=== PATIENT | male | born 1995 | race Caucasian/White ===

== ENCOUNTER 2024-10-30 15:25 | Inpatient (IN) | payer OTHER ==
[~2024-10-30] VITALS: Ht 193 cm; Wt 79.4 kg
[2024-10-30] MEDS: SODIUM CHLORIDE 0.9% 1,000 ML IV ONE ×2 (16:11→16:51)
[2024-10-30] MEDS: ONDANSETRON HCL 4MG/2ML INJ IV ONE (16:12)
[2024-10-30 16:35] LABS: BG DEOXYHEMOGLOBIN 1.8 % (0.0-5.0)
[2024-10-30 16:50] LABS: BASOPHILS % 1.2 % (0.0-2.0); EOSINOPHILS % 1.2 % (0.0-5.0); HEMATOCRIT. 48.8 % (42.0-52.0); HEMOGLOBIN. 15.7 g/dL (14.0-18.0); LYMPHOCYTES % 26.1 % (20.0-50.0); MEAN PLATELET VOLUME 8.8 fl (7.4-10.4); MONOCYTES % 5.1 % (2.0-8.0); NEUTROPHILS % 66.4 % (40.0-76.0); PLATELET 310 x1000/uL (130-400); RED BLOOD CELL COUNT 5.20 mill/uL (4.7-6.1); RED CELL DISTRIBUTION WIDTH 14.7 % (11.6-14.6)
[2024-10-30 16:58] LABS: CREATININE 1.6 mg/dL (0.6-1.3)
[2024-10-30 16:59] LABS: ETHANOL BLOOD < 10 mg/dL (<10); TROPONIN I HIGH SENSITIVITY < 4 ng/L (3.0-53); UREA NITROGEN BLOOD 8 mg/dL (9-23)
[2024-10-30 17:00] LABS: ASPARTATE AMINOTRANSFERASE 10 IU/L (<34); BILIRUBIN DIRECT 0.1 mg/dL (<=3.0)
[2024-10-30 17:01] LABS: BILIRUBIN TOTAL 0.4 mg/dL (0.1-1.0); PROTEIN TOTAL 8.0 g/dL (6.0-8.3)
[2024-10-30] MEDS ORDERED: INSULIN REGULAR (DRIP) 100 UNITS in SODIUM CHLORIDE 0.9% 99 ML IV SCH (17:15)
[2024-10-30] MEDS ORDERED: BLOOD SUGAR DIAGNOSTIC STRIP TEST PRN (17:15)
[2024-10-30] MEDS ORDERED: POTASSIUM CHLORIDE 40 MEQ in SODIUM CHLORIDE 0.9% 230 ML IV PRN (17:15)
[2024-10-30] MEDS ORDERED: DEXTROSE 50% WATER 50ML SYRINGE IV PRN (17:15)
[2024-10-30] MEDS: BLOOD SUGAR DIAGNOSTIC STRIP TEST SCH (17:31)
[2024-10-30] MEDS: INSULIN REGULAR 100U/100ML PMX 100 ML IV SCH (17:31)
[2024-10-30] MEDS: SODIUM CHLORIDE 0.9% 1,000 ML IV SCH (17:31)
[2024-10-30 18:27] LABS: TROPONIN I HIGH SENSITIVITY < 4 ng/L (3.0-53)
[2024-10-30] MEDS: IPRATROPIUM/ALBUTEROL 0.5-3(2.5)MG/3ML NEB NEB PRN (19:44)
[2024-10-30 19:47] VITALS: PULSE 114; RESP 21; O2SAT 100
[2024-10-30 22:37] LABS: CLARITY URINE CLEAR (CLEAR); COLOR URINE YELLOW (YELLOW); GLUCOSE URINE 3+ (NEGATIVE); KETONES URINE 4+ (NEGATIVE); LEUKOCYTE ESTERASE URINE TRACE (NEGATIVE); NITRITE URINE NEGATIVE (NEGATIVE); OCCULT BLOOD URINE TRACE (NEGATIVE); PH URINE 5.0 (4.5-8.0); PROTEIN URINE 2+ (NEGATIVE); SPECIFIC GRAVITY URINE 1.023 (1.005-1.030); UROBILINOGEN URINE 0.2 E.U./dL (0.2-1.0)
[2024-10-30 22:55] LABS: BACTERIA URINE 1+; SQUAMOUS EPITHELIAL CELL URINE RARE /lpf (RARE/1+); YEAST URINE FEW
[2024-10-30 22:56] LABS: *AMPHETAMINES SCREEN URINE NEGATIVE (NEGATIVE); *BARBITURATES SCREEN URINE NEGATIVE (NEGATIVE); *BENZODIAZEPINES SCREEN URINE NEGATIVE (NEGATIVE); *COCAINE SCREEN URINE NEGATIVE (NEGATIVE); CANNABINOID URINE SCREEN NEGATIVE (NEGATIVE); ECSTASY MDMA SCREEN URINE NEGATIVE (NEGATIVE); METHADONE URINE SCREEN NEGATIVE (NEGATIVE); OPIATES URINE SCREEN NEGATIVE (NEGATIVE); PHENCYCLIDINE URINE SCREEN NEGATIVE (NEGATIVE)
[2024-10-31] VITALS (99 sets, daily range): BP systolic 57–138; BP diastolic 33–104; PULSE 86–121; RESP 13–32; TEMP 36.5–38.1; O2SAT 95–100
[2024-10-31] MEDS: CEFTRIAXONE 1GM/50ML 50 ML IV ONE (00:14)
[2024-10-31 01:44] LABS: PHOSPHORUS 3.2 mg/dL (2.5-4.9)
[2024-10-31] MEDS: SODIUM CHLORIDE 0.9% 1,000 ML IV SCH (02:00)
[2024-10-31] MEDS ORDERED: BLOOD SUGAR DIAGNOSTIC STRIP TEST PRN (02:00)
[2024-10-31] MEDS ORDERED: DEXTROSE 50% WATER 50ML SYRINGE IV PRN (02:00)
[2024-10-31] MEDS ORDERED: ONDANSETRON HCL 4MG/2ML INJ IV PRN ×2 (02:00→09:00)
[2024-10-31] MEDS: DEXT 5%/0.9% NACL 1,000 ML IV SCH (02:16)
[2024-10-31] MEDS: BLOOD SUGAR DIAGNOSTIC STRIP TEST SCH (02:38)
[2024-10-31 03:36] LABS: CREATININE 1.2 mg/dL (0.6-1.3); UREA NITROGEN BLOOD 9 mg/dL (9-23)
[2024-10-31] MEDS: POTASSIUM CHLORIDE 40 MEQ in SODIUM CHLORIDE 0.9% 230 ML IV PRN (03:43)
[2024-10-31 05:39] LABS: CREATININE 1.3 mg/dL (0.6-1.3)
[2024-10-31 05:40] LABS: UREA NITROGEN BLOOD 7 mg/dL (9-23)
[2024-10-31 05:42] LABS: PHOSPHORUS 1.5 mg/dL (2.5-4.9)
[2024-10-31] MEDS: SODIUM BICARBONATE 100 MEQ in DEXTROSE 5% WATER 900 ML IV SCH (05:59)
[2024-10-31] MEDS: MAGNESIUM 2 G PREMIX 50 ML IV PRN (06:15)
[2024-10-31] MEDS: SODIUM PHOSPHATE 15 MMOL in SODIUM CHLORIDE 0.9% 245 ML IV PRN (06:39)
[2024-10-31 07:21] LABS: BASOPHILS % 0.3 % (0.0-2.0); EOSINOPHILS % 0.2 % (0.0-5.0); HEMATOCRIT. 38.9 % (42.0-52.0); HEMOGLOBIN. 13.1 g/dL (14.0-18.0); LYMPHOCYTES % 8.4 % (20.0-50.0); MEAN PLATELET VOLUME 8.6 fl (7.4-10.4); MONOCYTES % 11.7 % (2.0-8.0); NEUTROPHILS % 79.4 % (40.0-76.0); PLATELET 195 x1000/uL (130-400); RED BLOOD CELL COUNT 4.26 mill/uL (4.7-6.1); RED CELL DISTRIBUTION WIDTH 14.8 % (11.6-14.6)
[2024-10-31] MEDS: PANTOPRAZOLE SODIUM 40 MG/VIAL IV SCH (08:56)
[2024-10-31] MEDS ORDERED: CLONIDINE 0.1MG TABLET PO PRN (09:00)
[2024-10-31] MEDS ORDERED: MAGNESIUM/ALUMINUM HYDROXIDE/SIMETHICONE 30ML UDC PO PRN (09:00)
[2024-10-31] MEDS ORDERED: DOCUSATE SODIUM 100MG CAPSULE PO PRN (09:00)
[2024-10-31 09:20] LABS: BG BASE EXCESS -18.7 mmol/L (-2.0-3.0); BG CARBOXYHEMOGLOBIN 0.3 % (0.5-1.5); BG DEOXYHEMOGLOBIN 1.2 % (0.0-5.0); BG FRACTION INSPIRED OXYGEN 21; BG HCO3 ACT 6.7 mmol/L (21.0-28.0); BG METHEMOGLOBIN 0.3 % (0.5-1.5); BG OXYGEN SATURATION 98.8 % (94.0-98.0); BG OXYHEMOGLOBIN 98.2 % (94.0-98.0); BG PCO2 16.3 mmHg (35.0-48.0); BG PH 7.229 (7.350-7.450); BG PO2 141.3 mmHg (83.0-108.0); BG SAMPLE SITE RIGHT RADIAL; BG TOTAL HEMOGLOBIN 11.6 g/dL (13.5-17.5); BG VENT MODE ROOM AIR
[2024-10-31] MEDS ORDERED: POTASSIUM PHOSPHATE 30 MMOL in SODIUM CHLORIDE 0.9% 490 ML IV ONE (10:30)
[2024-10-31] MEDS: SODIUM BICARBONATE 8.4% 50MEQ/50ML SYR IV NR ×2 (11:05→17:26)
[2024-10-31] MEDS: ENOXAPARIN 40MG/0.4ML SYR SUBCUT SCH (11:17)
[2024-10-31 12:05] LABS: BASOPHILS % 0.5 % (0.0-2.0); EOSINOPHILS % 0.4 % (0.0-5.0); HEMATOCRIT. 37.0 % (42.0-52.0); HEMOGLOBIN. 12.6 g/dL (14.0-18.0); LYMPHOCYTES % 10.5 % (20.0-50.0); MEAN PLATELET VOLUME 8.4 fl (7.4-10.4); MONOCYTES % 10.8 % (2.0-8.0); NEUTROPHILS % 77.8 % (40.0-76.0); PLATELET 203 x1000/uL (130-400); RED BLOOD CELL COUNT 4.13 mill/uL (4.7-6.1); RED CELL DISTRIBUTION WIDTH 14.6 % (11.6-14.6)
[2024-10-31 13:15] LABS: PHOSPHORUS 0.8 mg/dL (2.5-4.9)
[2024-10-31] MEDS: KCL 20MEQ/100ML X 2 FOR TOTAL KCL 40MEQ/200ML IV SCH (13:23)
[2024-10-31 16:23] LABS: BG BASE EXCESS -14.8 mmol/L (-2.0-3.0); BG CARBOXYHEMOGLOBIN 0.6 % (0.5-1.5); BG DEOXYHEMOGLOBIN 1.7 % (0.0-5.0); BG FRACTION INSPIRED OXYGEN 21; BG HCO3 ACT 10.7 mmol/L (21.0-28.0); BG METHEMOGLOBIN 0.3 % (0.5-1.5); BG OXYGEN SATURATION 98.3 % (94.0-98.0); BG OXYHEMOGLOBIN 97.4 % (94.0-98.0); BG PCO2 24.9 mmHg (35.0-48.0); BG PH 7.251 (7.350-7.450); BG PO2 112.8 mmHg (83.0-108.0); BG SAMPLE SITE RIGHT BRACHIAL; BG TOTAL HEMOGLOBIN 11.5 g/dL (13.5-17.5); BG VENT MODE ROOM AIR
[2024-10-31 18:06] LABS: BASOPHILS % 0.5 % (0.0-2.0); EOSINOPHILS % 1.3 % (0.0-5.0); HEMATOCRIT. 34.2 % (42.0-52.0); HEMOGLOBIN. 11.7 g/dL (14.0-18.0); LYMPHOCYTES % 16.1 % (20.0-50.0); MEAN PLATELET VOLUME 8.4 fl (7.4-10.4); MONOCYTES % 12.2 % (2.0-8.0); NEUTROPHILS % 69.9 % (40.0-76.0); PLATELET 184 x1000/uL (130-400); RED BLOOD CELL COUNT 3.82 mill/uL (4.7-6.1); RED CELL DISTRIBUTION WIDTH 14.8 % (11.6-14.6)
[2024-10-31 18:16] LABS: PHOSPHORUS 2.0 mg/dL (2.5-4.9)
[2024-10-31 19:18] LABS: *AMPHETAMINES SCREEN URINE NEGATIVE (NEGATIVE); *BARBITURATES SCREEN URINE NEGATIVE (NEGATIVE); *BENZODIAZEPINES SCREEN URINE NEGATIVE (NEGATIVE); *COCAINE SCREEN URINE NEGATIVE (NEGATIVE); CANNABINOID URINE SCREEN NEGATIVE (NEGATIVE); METHADONE URINE SCREEN NEGATIVE (NEGATIVE); OPIATES URINE SCREEN NEGATIVE (NEGATIVE); PHENCYCLIDINE URINE SCREEN NEGATIVE (NEGATIVE)
[2024-10-31 19:19] LABS: ECSTASY MDMA SCREEN URINE NEGATIVE (NEGATIVE)
[2024-10-31] MEDS: INSULIN REGULAR 100U/100ML PMX 100 ML IV SCH (22:00)
[2024-10-31 22:07] LABS: CREATININE 1.1 mg/dL (0.6-1.3); UREA NITROGEN BLOOD 5 mg/dL (9-23)
[2024-10-31 22:09] LABS: PHOSPHORUS 2.0 mg/dL (2.5-4.9)
[2024-10-31] MEDS: POTASSIUM CHLORIDE 20MEQ/PACKET PO NR (22:47)
[2024-10-31] MEDS: POTASSIUM PHOSPHATE 30 MMOL in DEXT 5% WATER 500 ML IV NR (23:36)
[2024-11-01] VITALS (41 sets, daily range): BP systolic 95–124; BP diastolic 57–79; PULSE 78–105; RESP 14–23; TEMP 36.5–37.1; O2SAT 97–100
[2024-11-01] MEDS: INSULIN LISPRO 100 UNITS/ML SUBCUT SCH (00:34)
[2024-11-01] MEDS: POTASSIUM CHLORIDE 20MEQ/PACKET PO NR (02:17)
[2024-11-01 06:36] LABS: UREA NITROGEN BLOOD < 5 mg/dL (9-23)
[2024-11-01 06:37] LABS: CREATININE 1.1 mg/dL (0.6-1.3)
[2024-11-01 06:39] LABS: BILIRUBIN DIRECT 0.2 mg/dL (<=3.0); PHOSPHORUS 2.3 mg/dL (2.5-4.9); T4 FREE 0.87 ng/dL (0.89-1.76)
[2024-11-01 06:40] LABS: ASPARTATE AMINOTRANSFERASE < 8 IU/L (<34); BILIRUBIN TOTAL 0.7 mg/dL (0.1-1.0); PROTEIN TOTAL 6.0 g/dL (6.0-8.3)
[2024-11-01 06:50] LABS: BASOPHILS % 0.9 % (0.0-2.0); EOSINOPHILS % 1.9 % (0.0-5.0); HEMATOCRIT. 34.4 % (42.0-52.0); HEMOGLOBIN. 11.6 g/dL (14.0-18.0); LYMPHOCYTES % 24.1 % (20.0-50.0); MEAN PLATELET VOLUME 9.0 fl (7.4-10.4); MONOCYTES % 7.2 % (2.0-8.0); NEUTROPHILS % 65.9 % (40.0-76.0); PLATELET 174 x1000/uL (130-400); RED BLOOD CELL COUNT 3.78 mill/uL (4.7-6.1); RED CELL DISTRIBUTION WIDTH 15.3 % (11.6-14.6)
[2024-11-01 08:46] LABS: BG BASE EXCESS -19.7 mmol/L (-2.0-3.0); BG CARBOXYHEMOGLOBIN 0.4 % (0.5-1.5); BG DEOXYHEMOGLOBIN 1.6 % (0.0-5.0); BG FRACTION INSPIRED OXYGEN 21; BG HCO3 ACT 5.5 mmol/L (21.0-28.0); BG METHEMOGLOBIN 0.3 % (0.5-1.5); BG OXYGEN SATURATION 98.4 % (94.0-98.0); BG OXYHEMOGLOBIN 97.7 % (94.0-98.0); BG PCO2 13.6 mmHg (35.0-48.0); BG PH 7.223 (7.350-7.450); BG PO2 119.2 mmHg (83.0-108.0); BG SAMPLE SITE RIGHT RADIAL; BG TOTAL HEMOGLOBIN 12.2 g/dL (13.5-17.5); BG VENT MODE ROOM AIR
[2024-11-01] MEDS: KCL 20MEQ/100ML PREMIX 100 ML IV NR (09:17)
[2024-11-01 13:09] LABS: CREATININE 1.0 mg/dL (0.6-1.3)
[2024-11-01 13:10] LABS: UREA NITROGEN BLOOD < 5 mg/dL (9-23)
[2024-11-01 18:08] LABS: CREATININE 0.9 mg/dL (0.6-1.3); UREA NITROGEN BLOOD < 5 mg/dL (9-23)
[2024-11-01 21:04] LABS: CREATININE 1.0 mg/dL (0.6-1.3)
[2024-11-01 21:05] LABS: UREA NITROGEN BLOOD < 5 mg/dL (9-23)
[2024-11-01] MEDS: KCL 20MEQ/100ML PREMIX 100 ML IV PRN (21:05)
[2024-11-02] VITALS (29 sets, daily range): BP systolic 81–120; BP diastolic 64–105; PULSE 70–105; RESP 9–22; TEMP 36.7–37.1; O2SAT 96–99
[2024-11-02 02:15] LABS: CREATININE 0.9 mg/dL (0.6-1.3); UREA NITROGEN BLOOD < 5 mg/dL (9-23)
[2024-11-02 06:00] LABS: BASOPHILS % 1.2 % (0.0-2.0); EOSINOPHILS % 2.9 % (0.0-5.0); HEMATOCRIT. 28.4 % (42.0-52.0); HEMOGLOBIN. 9.7 g/dL (14.0-18.0); LYMPHOCYTES % 30.5 % (20.0-50.0); MEAN PLATELET VOLUME 8.2 fl (7.4-10.4); MONOCYTES % 10.2 % (2.0-8.0); NEUTROPHILS % 55.2 % (40.0-76.0); PLATELET 147 x1000/uL (130-400); RED BLOOD CELL COUNT 3.16 mill/uL (4.7-6.1); RED CELL DISTRIBUTION WIDTH 14.6 % (11.6-14.6)
[2024-11-02 06:39] LABS: CREATININE 0.8 mg/dL (0.6-1.3)
[2024-11-02 06:41] LABS: PROTEIN TOTAL 5.0 g/dL (6.0-8.3)
[2024-11-02 06:42] LABS: BILIRUBIN DIRECT 0.3 mg/dL (<=3.0); LDL CHOLESTEROL 88 mg/dL (5-100); TRIGLYCERIDE 117 mg/dL (0-150); UREA NITROGEN BLOOD < 5 mg/dL (9-23)
[2024-11-02 06:43] LABS: PHOSPHORUS 1.5 mg/dL (2.5-4.9)
[2024-11-02 06:44] LABS: BILIRUBIN TOTAL 0.8 mg/dL (0.1-1.0)
[2024-11-02 06:51] LABS: ASPARTATE AMINOTRANSFERASE < 8 IU/L (<34)
[2024-11-02 10:38] LABS: CREATININE 0.9 mg/dL (0.6-1.3)
[2024-11-02 10:39] LABS: UREA NITROGEN BLOOD < 5 mg/dL (9-23)
[2024-11-02 10:55] LABS: PHOSPHORUS 0.6 mg/dL (2.5-4.9)
[2024-11-02] MEDS: MAGNESIUM 2 G PREMIX 50 ML IV PRN (11:15)
[2024-11-02] MEDS: POTASSIUM PHOSPHATE 20 MMOL in DEXT 5% WATER 243.3333 ML IV SCH (11:32)
[2024-11-02] MEDS: ACETAMINOPHEN 325MG TABLET PO PRN (11:38)
[2024-11-02 18:40] LABS: CREATININE 0.7 mg/dL (0.6-1.3); UREA NITROGEN BLOOD < 5 mg/dL (9-23)
[2024-11-02 18:42] LABS: PHOSPHORUS 2.0 mg/dL (2.5-4.9)
[2024-11-02] MEDS: KCL 20MEQ/100ML PREMIX 100 ML IV SCH (18:58)
[2024-11-02] MEDS: POTASSIUM CHLORIDE 20MEQ/PACKET PO SCH (19:35)
[2024-11-02] MEDS: MAGNESIUM 1 G PREMIX 100 ML IV SCH (20:47)
[2024-11-02] MEDS ORDERED: KCL 20MEQ/100ML PREMIX 100 ML IV SCH (23:00)
[2024-11-03 09:12] LABS: FOLICLE STIMULATING HORMONE 3.5 mIU/mL (1.5-12.4); LUTEINIZING HORMONE 10.9 mIU/mL (1.7-8.6); PROLACTIN 5.3 ng/mL (3.6-31.5)
[2024-11-05 06:08] LABS: TESTOSTERONE FREE 3.2 pg/mL (9.3-26.5)
== END 2024-11-02 22:05 | disposition short-term general hospital (02) | DRG 638 ==
LOC: ER 15:25 → EDBEDREQTM 23:42 → EDBEDREQ 23:42 → ENRESERV 23:54 → CVICU 10-31 00:42
PROVIDERS: ADMIT Family Medicine Adult Medicine; ATTEND Family Medicine Adult Medicine
DX: E10.10 Type 1 diabetes mellitus with ketoacidosis without coma (principal); N17.9 Acute kidney failure, unspecified; E10.22 Type 1 diabetes mellitus with diabetic chronic kidney disease; E83.39 Other disorders of phosphorus metabolism; E83.42 Hypomagnesemia; E83.51 Hypocalcemia; N18.9 Chronic kidney disease, unspecified; Z79.4 Long term (current) use of insulin; D72.829 Elevated white blood cell count, unspecified; D64.9 Anemia, unspecified; Z91.148 Patient's other noncompliance with medication regimen for other reason; E87.6 Hypokalemia; R74.01 Elevation of levels of liver transaminase levels; K31.84 Gastroparesis; E10.43 Type 1 diabetes mellitus with diabetic autonomic (poly)neuropathy; Z80.6 Family history of leukemia; Z82.3 Family history of stroke; E86.0 Dehydration
CPT/HCPCS: 36415; 36600; 71045; 80048; 80051; 80061; 80076; 80305; 80320; 81003; 82010; 82024; 82375; 82533; 82803; 82805; 82962; 83001; 83002; 83036; 83519; 83605; 83735; 83880; 83930; 84100; 84146; 84402; 84403; 84439; 84443; 84484; 84681; 85025; 93005; 93970; 94640; 99291; A4606; J0696; J1650; J1815; J2405; J2470; J3475; J3480; J3490; J7030; J7042; J7050; J7060; J7070; G0480